=== PATIENT | female | born 1985 ===

== ENCOUNTER 2021-11-17 13:18 | Outpatient (CLI) | payer OTHER | END 2021-11-17 13:19 | disposition home or self-care (01) | LOC: LAB 13:18 | PROVIDERS: ATTEND Internal Medicine | DX: D68.9 Coagulation defect, unspecified (principal) ==

== ENCOUNTER 2021-11-18 05:54 | Day surgery (SDC) | payer OTHER | END 2021-11-18 15:50 | disposition home or self-care (01) | LOC: CIR.AMB 05:54 | PROVIDERS: ATTEND Colon & Rectal Surgery | DX: K64.2 Third degree hemorrhoids (principal); K62.89 Other specified diseases of anus and rectum; K60.0 Acute anal fissure; Z91.040 Latex allergy status; J45.909 Unspecified asthma, uncomplicated; Z86.16 Personal history of COVID-19; Z20.822 Contact with and (suspected) exposure to COVID-19 ==